=== PATIENT | female | born 1965 | race Caucasian/White ===

== ENCOUNTER 2018-04-20 06:35 | Day surgery (SDC) | payer OTHER ==
[2018-04-20] MEDS ORDERED: Propofol 200 MG/20 ML SDV ONE (07:00)
[2018-04-20] MEDS ORDERED: fentaNYL 100 MCG/2 ML SDV ONE (07:01)
[2018-04-20] MEDS ORDERED: Midazolam 1 MG/ML 2 ML SDV ONE (07:01)
[2018-04-20] MEDS ORDERED: Lactated Ringers 1,000 ML IV SCH (07:30)
--- NOTE | 2018-04-21 11:12 | OR ---
DATE OF PROCEDURE: 04/20/2018 PREOPERATIVE DIAGNOSIS: Colon cancer screening. POSTOPERATIVE DIAGNOSIS: Unremarkable colonoscopy. PROCEDURE: Colonoscopy to the cecum. SURGEON: Jim Choi MD. ANESTHESIA: IV anesthesia with monitored anesthesia care. INDICATION: This 53-year-old white female is referred for a colonoscopy for colon cancer screening. She has never had a colonoscopic exam. I counseled her for the procedure including risks and alternatives, and she gave her informed consent to proceed. DESCRIPTION OF PROCEDURE: The patient was placed in the left lateral decubitus position. IV anesthesia was administered by the Anesthesia Service. Time-out was held. A rectal exam was performed, which was unremarkable. The flexible video Olympus colonoscope was introduced through her anus, up her rectum, and out her colon, all way to the cecum. Once the cecum was reached, the scope was slowly withdrawn, examining the mucosa throughout. No mucosal abnormalities were noted. The scope was retroflexed in the rectum with the distal rectum appearing unremarkable. The scope was straightened and removed. She tolerated the procedure well. Jim Choi MD /[id number]
== END 2018-04-20 08:49 | disposition home or self-care (01) ==
LOC: JP.SDS 06:35
PROVIDERS: ATTEND Surgery
DX: Z12.11 Encounter for screening for malignant neoplasm of colon (principal)
CPT/HCPCS: 81025; J2250; J2704; J3010; J7120

== ENCOUNTER 2018-05-13 06:24 | Day surgery (SDC) | payer OTHER ==
[2018-05-13] MEDS ORDERED: cefOXitin 2 GM in Sodium Chloride 0.9% 50 ML IV ONE (07:00)
[2018-05-13] MEDS ORDERED: Ondansetron 4 MG/2 ML SDV ONE (07:40)
[2018-05-13] MEDS ORDERED: Glycopyrrolate 0.2 MG/ML 5 ML MDV ONE (07:40)
[2018-05-13] MEDS ORDERED: Succinylcholine 200 MG/10 ML MDV ONE (07:40)
[2018-05-13] MEDS ORDERED: Dexamethasone 4 MG/ML SDV ONE (07:40)
[2018-05-13] MEDS ORDERED: Propofol 200 MG/20 ML SDV ONE (07:40)
[2018-05-13] MEDS ORDERED: Rocuronium 50 MG/5 ML Vial ONE (07:40)
[2018-05-13] MEDS ORDERED: Neostigmine Methylsulfate 1 MG/ML 5 ML Syringe ONE (07:40)
[2018-05-13] MEDS ORDERED: fentaNYL 250 MCG/5 ML SDV ONE ×2 (08:00→08:32)
[2018-05-13] MEDS: Lidocaine 1% with EPINEPHrine 1:100,000 50 ML MDV ONE ×2 (08:42→08:57)
[2018-05-13] MEDS: Bupivacaine 0.5% 50 ML MDV ONE ×2 (08:42→08:57)
[2018-05-13] MEDS ORDERED: Lactated Ringers 1,000 ML ONE (09:02)
[2018-05-13] MEDS ORDERED: Ondansetron 4 MG/2 ML SDV IVPUSH PRN (09:24)
[2018-05-13] MEDS ORDERED: Docusate Sodium 100 MG Cap PO PRN (09:24)
[2018-05-13] MEDS ORDERED: fentaNYL 100 MCG/2 ML SDV IVPUSH PRN (09:24)
[2018-05-13] MEDS: Dextrose 5%-Lactated Ringers 1,000 ML IV SCH ×2 (10:05→20:21)
[2018-05-13] MEDS: Acetaminophen/HYDROcodone 325-5 MG Tab PO PRN ×2 (11:04→17:01)
[2018-05-13] MEDS: Mupirocin Oint 22 GM Tube TOP SCH ×2 (11:05→21:47)
--- NOTE | 2018-05-13 13:21 | OR ---
DATE OF PROCEDURE: 05/13/2018 PREOPERATIVE DIAGNOSES: Chronic cholecystitis with cholelithiasis, fatty liver. POSTOPERATIVE DIAGNOSES: Chronic cholecystitis with cholelithiasis, fatty liver. PROCEDURES: Laparoscopic Low-Cut liver biopsy and cholecystectomy. SURGEON: Jim Choi MD. ANESTHESIA: General endotracheal. INDICATION: This 53-year-old white female complains of intermittent episodes of upper abdominal pain. She has had known cholelithiasis for many years. She is taken to the operating room for a laparoscopic cholecystectomy. A recent ultrasound also showed a fatty liver, so a Low-Cut biopsy was planned. I counseled her for surgery including risks and alternatives, and she gave her informed consent to proceed. DESCRIPTION OF PROCEDURE: After adequate general endotracheal anesthesia was obtained, the patient's abdomen was prepped and draped in the usual sterile fashion. Time- out was held. An infraumbilical semicircular incision was made. Under direct vision, a 12- mm port was introduced into the abdomen through this incision using the Optiview technique. The camera was introduced into the abdomen, and the abdomen was insufflated to a pressure of 20 mmHg with carbon dioxide. No evidence of intraabdominal injury was seen. Under direct vision, a 12-mm port was placed in the epigastrium and a 5-mm port was placed in the right lower quadrant. A small skin incision was made in the right upper quadrant and through this, a Low-Cut biopsy device was placed. We then obtained a Low-Cut biopsy of the liver. The gallbladder was then grasped and elevated. The cystic duct and arteries were dissected free, and they were each clipped up from the gallbladder separately and three times proximally and divided between clips. Some lymphatics were clipped and divided. The gallbladder was then dissected free from the gallbladder bed using Bovie electrocautery. The gallbladder was placed in a sample retrieval bag and elevated up through the anterior abdominal wall via the epigastric port site. To accomplish this, we had to make the incision a little larger as the stone was fairly large. We did open the gallbladder in the process of taking it out. The epigastric port was reintroduced back into the abdomen. The gallbladder bed was irrigated and suctioned dry. Hemostasis was obtained with electrocautery. All looked well. The fascial closure device was used to place an 0 Vicryl stitch in the epigastric fascial defect. The infraumbilical port was removed, with a [id number] stitch of 0 Vicryl used to close this fascial defect. We then evacuated as much CO2 as we could from the abdomen as we could through the 5-mm port site in the right lower quadrant was removed. Lidocaine 1% with epinephrine in a 50:50 mix with 0.5% Marcaine was infiltrated about all incisions. 4-0 Vicryl using a subcuticular stitch was placed to approximate the skin of the incisions. Dermabond was applied. The anesthesia was reversed. She was extubated and brought to recovery room in a good condition. Jim Choi MD /[id number] MTDD
[2018-05-14] MEDS: Dextrose 5%-Lactated Ringers 1,000 ML IV SCH (05:58)
--- NOTE | 2018-05-14 06:19 | PCM.DCSUM1 ---
Discharge Summary - Hospital Course Free Text/Narrative:: This 53 year old white female complains of intermittent episodes of upper abdominal pain. She had cholelithiasis (single large stone) on ultrasound. LFT' s were OK. She also on ultrasound had a fatty liver. She was admitted 2017 for a laparoscopic cholecystectomy and Low-cut liver biopsy which was performed. She was kept over night and now feels fine and wants to go home. She will be discharged if she eats a good breakfast. Modified Dickson Scale: No Symptoms at All Modified Dickson Scale Score: 0 - Discharge Data Discharge Date: 05/14/18 Discharge Disposition: Home, Self-Care 01 Condition: Good - Discharge Diagnosis/Problem(s) (1) Cholecystitis with cholelithiasis SNOMED Code(s): 669170597, [id number] ICD Code: K80.10 - CALCULUS OF GALLBLADDER W CHRONIC CHOLECYST W/O OBSTRUCTION Status: Acute Current Visit: Yes Qualifiers: Cholelithiasis location: gallbladder Cholecystitis acuity: chronic Biliary obstruction: without biliary obstruction Qualified Code(s): K80.10 - Calculus of gallbladder with chronic cholecystitis without obstruction - Patient Summary/Data Operative Procedure(s) Performed: Laparoscopic cholecystectomy and Low-cut liver biopsy. Consults: Consultations 05/13/18 09:24 Respiratory Care Assess and Treatment [CONS] Routine Comment: Physician Instructions: Post-Op Pneumonia Prevention Hospital Course: See above narrative. - Patient Instructions Diet: Usual Diet as Tolerated Activity: As Tolerated (Avoid activity that causes discomfort. ) Driving, Other: Do not drive while taking narcotic pain medication. Showering/Bathing: May Shower Notify Provider of: Fever, Increased Pain, Swelling and Redness, Drainage, Nausea and/or Vomiting - Discharge Plan Prescriptions/Med Rec: Acetaminophen/HYDROcodone [[place] 325-5 MG] 1 - 2 tab PO Q4H PRN #30 tablet PRN Reason: Pain (Moderate 4-6) Home Medications: Home Meds Mupirocin Oint [Bactroban Oint] 1 applic NASBOTH BID 05/11/18 [History] Acetaminophen/HYDROcodone [[place] 325-5 MG] 1 - 2 tab PO Q4H PRN #30 tablet 05/14 [Rx] Referrals: Jim Choi MD [Physician] - - Discharge Summary/Plan Comment DC Time >30 min.: Yes Discharge Summary/Plan Comment: See above narrative. - General Info Functional Status: Reports: Pain Controlled, Tolerating Diet, Ambulating, Urinating, Incentive Spirometry - Review of Systems General: Reports: No Symptoms HEENT: Reports: No Symptoms Pulmonary: Reports: No Symptoms Cardiovascular: Reports: No Symptoms Gastrointestinal: Reports: No Symptoms Genitourinary: Reports: No Symptoms Musculoskeletal: Reports: No Symptoms Skin: Reports: No Symptoms Neurological: Reports: No Symptoms Psychiatric: Reports: No Symptoms - Patient Data Vitals - Most Recent: Last Vital Signs Temp 96.2 F 05/14/18 03:00 Pulse 64 05/14/18 03:00 Resp 16 05/14/18 03:00 BP 136/63 05/14/18 03:00 Pulse Ox 91 L 05/14/18 03:00 Weight - Most Recent: 210 lb 6.4 oz I&O - Last 24 hours: Intake & Output 05/13/18 05/13/18 05/14/18 14:59 22:59 06:59 Intake Total 480 1164 750 Output Total 091 888 5968 Balance -20 364 -1750 Lab Results - Last 24 hrs: Laboratory Results - last 24 hr 05/13/18 05/14/18 Range/Units 06:51 05:11 WBC 11.3 H (4.5-11.0) K/uL RBC 4.37 (3.30-5.50) M/uL Hgb 12.6 (12.0-15.0) g/dL Hct 37.0 (36.0-48.0) % MCV 85 (80-98) fL MCH 29 (27-31) pg MCHC 34 (32-36) % Plt Count 275 (150-400) K/uL Urine HCG, Qual Negative INGRID Results - Last 24 hrs: Microbiology 05/13/18 09:21 Gram Stain - Final Gallbladder Med Orders - Current: Current Medications Hydrocodone Bitart/Acetaminophen ([place] 325-5 Mg) 2 tab PO Q4H PRN PRN Reason: Pain (moderate 4-6) Last Admin: 05/13/18 17:01 Dose: 2 tab Docusate Sodium (Colace) 100 mg PO BID PRN PRN Reason: Congestion Fentanyl (Sublimaze) 50 mcg IVPUSH Q1H PRN PRN Reason: Pain (severe 7-10) Dextrose/Lactated Ringer's (Dextrose 5%-Lactated Ringers) 1,000 mls @ 100 mls/ hr IV ASDIRECTED [facility] Last Admin: 05/14/18 05:58 Dose: 100 mls/hr Mupirocin (Bactroban Oint) 0 gm TOP BID [facility] Last Admin: 05/13/18 21:47 Dose: Not Given Ondansetron HCl (Zofran) 4 mg IVPUSH Q4H PRN PRN Reason: Nausea/Vomiting Discontinued Medications Bupivacaine HCl (Marcaine 0.5%) Confirm Administered Dose 50 ml .ROUTE .STK-MED ONE Stop: 05/13/18 07:39 Last Admin: 05/13/18 08:57 Dose: 10 ml Dexamethasone (Dexamethasone) Confirm Administered Dose 4 mg .ROUTE .STK-MED ONE Stop: 05/13/18 07:41 Fentanyl (Sublimaze) Confirm Administered Dose 250 mcg .ROUTE .STK-MED ONE Stop: 05/13/18 08:01 Fentanyl (Sublimaze) Confirm Administered Dose 250 mcg .ROUTE .STK-MED ONE Stop: 05/13/18 08:33 Glycopyrrolate (Robinul) Confirm Administered Dose 1 mg .ROUTE .STK-MED ONE Stop: 05/13/18 07:41 Cefoxitin Sodium 2 gm/ Sodium (Chloride) 50 mls @ 100 mls/hr IV ONETIME ONE Stop: 05/13/18 07:29 Last Admin: 05/13/18 07:55 Dose: 100 mls/hr Lactated Ringer's (Ringers, Lactated) Confirm Administered Dose 1,000 mls @ as directed .ROUTE .STK-MED ONE Stop: 05/13/18 09:03 Lidocaine/Epinephrine (Xylocaine 1% With Epinephrine 1:100,000) Confirm Administered Dose 50 ml .ROUTE .STK-MED ONE Stop: 05/13/18 07:39 Last Admin: 05/13/18 08:57 Dose: 10 ml Neostigmine Methylsulfate (Neostigmine) Confirm Administered Dose 5 mg .ROUTE .STK-MED ONE Stop: 05/13/18 07:41 Ondansetron HCl (Zofran) Confirm Administered Dose 4 mg .ROUTE .STK-MED ONE Stop: 05/13/18 07:41 Propofol (Diprivan 20 Ml) Confirm Administered Dose 200 mg .ROUTE .STK-MED ONE Stop: 05/13/18 07:41 Rocuronium [place] (Zemuron) Confirm Administered Dose 50 mg .ROUTE .STK-MED ONE Stop: 05/13/18 07:41 Succinylcholine Chloride (Quelicin) Confirm Administered Dose 200 mg .ROUTE .STK -MED ONE Stop: 05/13/18 07:41 - Exam General: Reports: Alert, Oriented, Cooperative, No Acute Distress Lungs: Reports: Clear to Auscultation, Normal Respiratory Effort Cardiovascular: Reports: Regular Rate, Regular Rhythm GI/Abdominal Exam: Normal Bowel Sounds, Soft, No Distention Back Exam: Reports: Normal Inspection, Full Range of Motion Extremities: Normal Inspection Skin: Reports: Warm, Dry, Intact Neurological: Reports: No New Focal Deficit Psy/Mental Status: Reports: Alert, Normal Affect, Normal Mood
[2018-05-14] MEDS: Acetaminophen/HYDROcodone 325-5 MG Tab PO PRN (08:16)
== END 2018-05-14 08:25 | disposition home or self-care (01) ==
LOC: JP.SDS 06:24 → JP.MS 09:24 → JP.2SS 09:25 → JP.SDS 05-14 08:25
PROVIDERS: ATTEND Surgery
DX: K80.10 Calculus of gallbladder with chronic cholecystitis without obstruction (principal); K76.0 Fatty (change of) liver, not elsewhere classified
CPT/HCPCS: 36415; 47379; 47562; 80053; 81025; 85027; 87070; 87075; 87205; 94762; A9270; J0330; J0694; J1100; J2405; J2704; J2710; J3010; J7042; J7050; J7120; 88304; 88307; 88312; 88313